=== PATIENT | male | born 1995 | race Caucasian/White ===

== ENCOUNTER 2016-12-22 21:19 | Emergency (ER) | payer SELFPAY ==
[~2016-12-22 21:19] MED LIST: CATAFLAM50 MG PO; KEFLEX500 M4 PO
[2016-12-22] MEDS ORDERED: ALEVE220 M3 PO (21:34)
[2016-12-22] MEDS ORDERED: NORCO 5/3251 TAB PO (22:00)
[2016-12-22] MEDS ORDERED: AMOXICILLIN500 M1 PO (22:00)
== END 2016-12-22 22:10 ==
LOC: EDMED 21:19
DX: K02.9 Dental caries, unspecified (principal); I10 Essential (primary) hypertension; F17.220 Nicotine dependence, chewing tobacco, uncomplicated